=== PATIENT | female | born 1980 | race Caucasian/White ===

== ENCOUNTER → 2016-11-06 | Outpatient (CLI) | payer BC ==
[~2016-11-06] MED LIST: MTRUNK PO; PRENTAB26 PO; TYLUNK PO
== END | disposition home or self-care (01) ==
LOC: C.LAB1850 07:37
PROVIDERS: ATTEND Internal Medicine Endocrinology, Diabetes & Metabolism
DX: E04.2 Nontoxic multinodular goiter (principal); Z87.81 Personal history of (healed) traumatic fracture

== ENCOUNTER → 2017-05-03 | Outpatient (CLI) | payer BC | END | disposition home or self-care (01) | LOC: C.PAPS 12:11 | PROVIDERS: ATTEND Obstetrics & Gynecology | DX: Z01.419 Encounter for gynecological examination (general) (routine) without abnormal findings (principal); N87.1 Moderate cervical dysplasia ==

== ENCOUNTER → 2017-12-03 | Outpatient (CLI) | payer BC | END | disposition home or self-care (01) | LOC: C.LAB1850 08:36 | PROVIDERS: ATTEND Obstetrics & Gynecology | DX: Z30.09 Encounter for other general counseling and advice on contraception (principal) ==

== ENCOUNTER → 2017-12-04 | Outpatient (CLI) | payer BC ==
[2017-12-04 13:20] LABS: BASO % 0.1 %; BASO ABS # 0.01 K/uL (0-0.2); EOS % 0.8 %; EOS ABS # 0.06 K/uL (0-0.5); HEMATOCRIT 31.3 % (37-47); HEMOGLOBIN 10.1 g/dL (12.0-16.0); IG# 0.04 K/uL (0.00-0.02); LYMPH % 19.1 %; LYMPH ABS # 1.43 K/uL (1.2-3.4); MEAN CELL VOLUME 69.6 fL (80-100); MEAN CORPUSCULAR HEMOGLOBIN 22.4 pg (25-34); MEAN CORPUSCULAR HGB CONC 32.3 g/dl (32-36); MONO % 6.4 %; MONO ABS # 0.48 K/uL (0.11-0.59); NEUT % 73.1 %; NEUT ABS # 5.46 K/uL (1.4-6.5); PLATELET COUNT 351 K/uL (130-400); RED CELL DISTRIBUTION WIDTH CV 18.7 % (11.5-14.5); RED CELL DISTRIBUTION WIDTH SD 44.7 fL (36.4-46.3); WHITE BLOOD COUNT 7.48 K/uL (4.8-10.8)
== END | disposition home or self-care (01) ==
LOC: C.LAB1850 11:44
PROVIDERS: ATTEND Obstetrics & Gynecology
DX: O09.522 Supervision of elderly multigravida, second trimester (principal)

== ENCOUNTER 2018-04-30 05:43 | Inpatient (IN) | END 2018-05-03 10:56 | disposition home health service (06) | LOC: 4S1 05:43 → EDSTATUS 07:30 → 4S2 13:00 ==